=== PATIENT | male | born 1965 | race Caucasian/White ===

== ENCOUNTER 2024-02-23 09:49 | Day surgery (SDC) | payer OTHER, SELFPAY ==
--- NOTE | 2024-02-23 09:59 | US_ITS ---
[address] [address] Patient Name: KAYLA OCAMPO MRN: [id number] date: 1965 Sex: M Assigned Patient Location: US Current Patient Location: US Accession/Order Number: [id number] Exam Date: 02/23/2024 10:00 Report Date: 02/23/2024 10:33 At the request of: EDGARD CHESTER Procedure: US soft tissue head and neck EXAM: US soft tissue head and neck HISTORY: Parotid Mass K11.8 COMPARISON: None. TECHNIQUE: Grayscale and color FINDINGS: Ultrasound of the left parotid gland Identified within the parotid gland is a focal area of anechoic echogenicity with some low-level echoes measuring 1.3 x 0.7 x 1.1 cm. No color flow is demonstrated. Identified along the margin of the parotid gland is a normal size normal morphology lymph node measuring 1.4 x 0.6 x 1.1 cm with a thin cortex measuring 2 mm and a hyperechogenic hilum US/US soft tissue head and neck IMPRESSION: 1.3 cm complex cyst in the left parotid gland Electronically authenticated by: TERRENCE JEAN Date: 02/23/2024 10:33
--- NOTE | 2024-02-23 09:59 | US_ITS ---
[address] [address] Patient Name: KAYLA OCAMPO MRN: [id number] date: 1965 Sex: M Assigned Patient Location: US Current Patient Location: US Accession/Order Number: [id number] Exam Date: 02/23/2024 10:00 Report Date: 02/23/2024 11:16 At the request of: EDGARD CHESTER Procedure: US biopsy FNA EXAMINATION: US biopsy FNA HISTORY: Parotid Mass K11.8 COMPARISON: No relevant comparison available. TECHNIQUE: After obtaining informed consent, an ultrasound-guided biopsy was performed in the usual sterile manner. FINDINGS: IMAGING: Ultrasound BIOPSY NEEDLE: 25-gauge, 2 inch SPECIMEN TYPE, #, LOCATION: 3 fine-needle aspirates, cystic mass left parotid gland MEDICATION: 3 cc 1% buffered lidocaine COMPLICATIONS: None. LABORATORY: Study sent in [employer] as well as slides OTHER: Aspiration of white thick fluid in addition to bloody aspirate from the margin of the lesion US/US biopsy FNA IMPRESSION: Uneventful ultrasound guided biopsy. The patient was instructed to obtain follow up care and biopsy results from the referring physician. Electronically authenticated by: TERRENCE JEAN Date: 02/23/2024 11:16
[2024-02-23 10:15] VITALS: BP 136/87; PULSE 69; O2SAT 96
--- NOTE | 2024-02-23 15:22 | SUR.PREOP ---
02/13/24 Pt instructed on procedure, date, time, and prep. Pt made aware to hold ASA x 5 days prior to procedure.
== END 2024-02-23 11:05 | disposition home or self-care (01) ==
LOC: US 09:54
PROVIDERS: Radiology Diagnostic Radiology; PCP Family Medicine; Visit Provider Otolaryngology
DX: K11.6 Mucocele of salivary gland (principal)
CPT/HCPCS: 10005; 76536; 88173